=== PATIENT | female | born 2000 | race Two or more races ===

== ENCOUNTER 2020-12-14 11:15 | Emergency (ER) | payer MEDICAID, OTHER ==
[~2020-12-14] VITALS: Ht 162.6 cm; Wt 63.5 kg
[2020-12-14 12:44] VITALS: BP 133/86
[2020-12-14] MEDS ORDERED: IBUPROFEN 800 MG TAB PO ONE (13:00)
== END 2020-12-14 13:57 | disposition home or self-care (01) ==
LOC: ER 11:15 → EDBD 11:15 → ER 13:49
DX: S39.012A Strain of muscle, fascia and tendon of lower back, initial encounter (principal); S60.511A Abrasion of right hand, initial encounter; X58.XXXA Exposure to other specified factors, initial encounter; Y93.89 Activity, other specified; Y92.89 Other specified places as the place of occurrence of the external cause; Y99.8 Other external cause status
CPT/HCPCS: 73130